=== PATIENT | male | born 1995 | race Caucasian/White ===

== ENCOUNTER 2017-08-08 10:19 | Emergency (ER) | payer MEDICAID ==
[~2017-08-08] VITALS: Ht 175.3 cm; Wt 65.3 kg
[~2017-08-08 10:19] MED LIST: IBUP-1984 PO
[2017-08-08] MEDS ORDERED: LIDOcaine 1.5% w/epinephrine 1:200,000 5ml ampul IJ ONE (12:00)
[2017-08-08] MEDS ORDERED: CEPH-572 PO (12:29)
[2017-08-08] MEDS ORDERED: SULF1TAB49 PO (12:29)
[2017-08-08] MEDS ORDERED: sulfamethoxazole/trimethoprim DS (800/160mg) tablet PO ONE (12:30)
[2017-08-08] MEDS ORDERED: cephalexin 500mg capsule PO ONE (12:30)
[2017-08-08 12:46] VITALS: BP 147/109
[2017-08-08] MEDS ORDERED: LORA-269 PO (21:37)
== END 2017-08-08 12:47 | disposition home or self-care (01) ==
LOC: ER 10:19
DX: K14.0 Glossitis (principal); F12.90 Cannabis use, unspecified, uncomplicated; F15.90 Other stimulant use, unspecified, uncomplicated
CPT/HCPCS: 10060; 99283; A6449; J3490

== ENCOUNTER 2017-08-08 20:41 | Emergency (ER) | payer MEDICAID ==
[~2017-08-08] VITALS: Ht 175.3 cm; Wt 65.9 kg
[~2017-08-08 20:41] MED LIST changes: +CEPH-572 PO; +SULF1TAB49 PO
[2017-08-08 20:46] VITALS: BP 93/61
[2017-08-08] MEDS ORDERED: acetaminophen 325mg tablet PO ONE (21:30)
[2017-08-08] MEDS ORDERED: LORazepam 1 MG tablet PO ONE (21:30)
[2017-08-08] MEDS ORDERED: LORA-269 PO (21:37)
== END 2017-08-08 22:14 | disposition home or self-care (01) ==
LOC: ER 20:42
DX: F41.9 Anxiety disorder, unspecified (principal); J06.9 Acute upper respiratory infection, unspecified; K13.0 Diseases of lips; F17.210 Nicotine dependence, cigarettes, uncomplicated; F12.10 Cannabis abuse, uncomplicated; F15.10 Other stimulant abuse, uncomplicated; Z79.899 Other long term (current) drug therapy
CPT/HCPCS: 93005; 99284

== ENCOUNTER 2018-04-02 00:53 | Emergency (ER) | payer MEDICAID ==
[~2018-04-02] VITALS: Ht 175.3 cm; Wt 61.5 kg
[~2018-04-02 00:53] MED LIST changes: -CEPH-572 PO; +LORA-269 PO; -SULF1TAB49 PO
[2018-04-02 00:58] VITALS: BP 120/85
[2018-04-02] MEDS ORDERED: mag hydrox/Alum hydrox/simeth 30ml oral suspension PO ONE (01:25)
[2018-04-02] MEDS ORDERED: LIDOcaine Viscous 15ml cup PO ONE (01:25)
[2018-04-02] MEDS ORDERED: ondansetron 4mg rapidly disintigrating tab PO ONE (01:25)
== END 2018-04-02 01:46 | disposition home or self-care (01) ==
LOC: ER 00:54
DX: R09.89 Other specified symptoms and signs involving the circulatory and respiratory systems (principal); R07.0 Pain in throat; R11.10 Vomiting, unspecified; F12.90 Cannabis use, unspecified, uncomplicated; F15.90 Other stimulant use, unspecified, uncomplicated
CPT/HCPCS: 71045; 74018; 99284

== ENCOUNTER 2018-08-23 01:16 | Emergency (ER) | payer MEDICAID ==
[~2018-08-23] VITALS: Ht 175.3 cm; Wt 58.0 kg
[2018-08-23 01:32] VITALS: BP 133/81
[2018-08-23] MEDS ORDERED: DOXYCYCLINE 100MG CAPSULE PO STA (05:28)
[2018-08-23] MEDS ORDERED: DOXY100C2 PO (05:31)
== END 2018-08-23 06:16 | disposition home or self-care (01) ==
LOC: ER 01:16
DX: S60.221A Contusion of right hand, initial encounter (principal); L02.511 Cutaneous abscess of right hand; L02.415 Cutaneous abscess of right lower limb; F17.210 Nicotine dependence, cigarettes, uncomplicated; F12.90 Cannabis use, unspecified, uncomplicated; Z71.6 Tobacco abuse counseling; Z79.899 Other long term (current) drug therapy; W22.8XXA Striking against or struck by other objects, initial encounter; Y93.89 Activity, other specified; Y92.89 Other specified places as the place of occurrence of the external cause; Y99.8 Other external cause status
CPT/HCPCS: 10060; 26010; 99284; 99406